=== PATIENT | male | born 1955 | race Caucasian/White ===

== ENCOUNTER → 2017-04-29 | Outpatient (CLI) | payer BC ==
[2017-04-29 09:41] LABS: CALCIUM 9.1 mg/dL (8.5-10.1); POTASSIUM 4.5 mmol/L (3.5-5.1)
== END | disposition home or self-care (01) ==
LOC: LAB 09:18
PROVIDERS: ATTEND Internal Medicine Cardiovascular Disease
DX: I42.9 Cardiomyopathy, unspecified (principal)
CPT/HCPCS: 36415; 80048

== ENCOUNTER → 2018-04-13 | Outpatient (CLI) | payer BC ==
[2018-04-13 09:36] LABS: ALBUMIN 3.5 g/dL (3.4-5.0); CALCIUM 8.7 mg/dL (8.5-10.1); CREATININE 0.9 mg/dL (0.7-1.3); GFR 85.5; POTASSIUM 4.1 mmol/L (3.5-5.1); TOTAL BILIRUBIN 0.5 mg/dL (0.2-1.0)
== END | disposition home or self-care (01) ==
LOC: LAB 08:22
PROVIDERS: ATTEND Nurse Practitioner
DX: E78.5 Hyperlipidemia, unspecified (principal)
CPT/HCPCS: 36415; 80053; 80061